=== PATIENT | female | born 1990 | race Hispanic/Latino ===

== ENCOUNTER 2017-07-27 21:28 | Outpatient (CLI) | payer MEDICAID ==
[2017-07-27 22:25] LABS: Bacteria,Urine 2+ /HPF (Negative); Bilirubin,Urine NEG (Negative); Blood,Urine NEG (Negative); Ketones,Urine NEG (Negative); Leukocyte Esterase,Urine SM (Negative); Mucus,Urine FEW /HPF; Nitrite,Urine NEG (Negative); Protein,Urine <15 mg/dL mg/dL (Negative); Urobilinogen,Urine < 2.0 mg/dL (<2.0)
[2017-07-27 22:50] VITALS: BP 115/70
--- NOTE | 2017-07-29 13:37 | Ultrasound Report ---
BIOPHYSICAL PROFILE: 07/27/17 21:28:00 CLINICAL: Well Being FINDINGS: The biophysical profile was scored as followin - breathing movements 2 - movements 2 - posture and tone 2 - Qualitative amniotic fluid volume 8 - TOTAL SCORE OF POSSIBLE 8 Heart Rate (bpm) = 166 IMPRESSION: Normal study
== END 2017-07-27 23:12 | disposition home or self-care (01) ==
LOC: TRG 21:28
PROVIDERS: ATTEND Obstetrics & Gynecology
DX: O36.8130 Decreased fetal movements, third trimester, not applicable or unspecified (principal); O99.333 Smoking (tobacco) complicating pregnancy, third trimester; O26.893 Other specified pregnancy related conditions, third trimester; M79.89 Other specified soft tissue disorders; Z3A.39 39 weeks gestation of pregnancy
CPT/HCPCS: 76819; 81001